=== PATIENT | female | born 1935 | race Caucasian/White ===

== ENCOUNTER 2023-11-25 05:52 | Day surgery (SDC) | payer MEDICARE ==
[2023-11-21 13:27] LABS: ALANINE AMINOTRANSFERASE 15 U/L (12-78); ALBUMIN 3.3 G/DL (3.4-5.0); ALBUMIN/GLOBULIN RATIO 0.9 (1.1-1.5); ALKALINE PHOSPHATASE 100 IU/L (46-116); ANION GAP 12 (8-16); ASPARTATE AMINO TRANSFERASE 13 U/L (10-37); BILIRUBIN,TOTAL 0.4 MG/DL (0.1-1.0); BLOOD UREA NITROGEN 26 MG/DL (7-18); BUN/CREATININE RATIO 29.5 (10.0-20.0); CALCIUM 9.1 MG/DL (8.5-10.1); CHLORIDE 107 MMOL/L (99-107); CREATININE 0.88 MG/DL (0.40-0.90); GLUCOSE 114 MG/DL (70-104); SODIUM 142 MMOL/L (135-145); TOTAL CARBON DIOXIDE 23.2 MMOL/L (24-32); TOTAL PROTEIN 6.9 G/DL (6.4-8.2); eGFR 61 ML/MIN
[2023-11-21 13:50] LABS: BASOPHILS % (AUTO) 0.8 % (0-1); EOSINOPHILS # (AUTO) 0.1 X10'3 (0-0.9); EOSINOPHILS % (AUTO) 2.4 % (0-6); HEMATOCRIT 40.9 % (35.0-45.0); HEMOGLOBIN 13.9 g/dl (12.0-16.0); LYMPHOCYTES # (AUTO) 1.8 X10'3 (1.1-4.8); LYMPHOCYTES % (AUTO) 33.2 % (21-51); MEAN CORPUSCULAR HEMOGLOBIN 31.3 PG (27.0-31.0); MEAN CORPUSCULAR HGB CONC 33.9 g/dL (33.0-36.5); MEAN CORPUSCULAR VOLUME 92.3 FL (78-98); MEAN PLATELET VOLUME 7.8 FL (7.4-10.4); MONOCYTES # (AUTO) 0.5 X10'3 (0-0.9); MONOCYTES % (AUTO) 9.3 % (2-12); NEUTROPHILS # (AUTO) 2.9 X10'3 (1.8-7.7); NEUTROPHILS % (AUTO) 54.3 % (42-75); PLATELET COUNT 257 X10'3 (140-440); RED BLOOD COUNT 4.43 X10'6 (4.20-5.60); RED CELL DISTRIBUTION WIDTH 13.8 % (11.5-14.5); WHITE BLOOD COUNT 5.4 X10'3 (4.5-11.0)
[~2023-11-25] VITALS: Ht 157.5 cm; Wt 70.6 kg
[~2023-11-25 05:52] MED LIST: BRIM5DRO6 EACHEYE; DORZ10DR26 EACHEYE; LATA2.5D14 EACHEYE; NAPR-56 PO
[2023-11-25 06:00] VITALS: BP 147/92; PULSE 52; RESP 15; RESP 16; TEMP 98.7; O2SAT 97
[2023-11-25] MEDS: famotidine 20mg tablet PO ONE (06:27)
[2023-11-25] MEDS: ringers solution, lacted 1,000 ML IV SCH (06:28)
[2023-11-25] MEDS: cefazolin 2gm/D5W 100mL 100 ML IV ONE (06:28)
[2023-11-25] MEDS ORDERED: morphine 2 MG/ML inj. syringe IV PRN (07:25)
[2023-11-25] MEDS ORDERED: ringers solution, lacted 1,000 ML IV SCH (07:25)
[2023-11-25] MEDS ORDERED: labetalol 20mg/4ml (5mg/ml) syringe IV PRN (07:25)
[2023-11-25] MEDS ORDERED: morphine 4 MG/ML inj SYRINge IV PRN (07:25)
[2023-11-25] MEDS ORDERED: ondansetron/PF 4mg/2ml inj IV PRN (07:25)
[2023-11-25] MEDS ORDERED: midazolam 1 mg/ML 2ml injection ONE (07:34)
[2023-11-25] MEDS ORDERED: fentaNYL/PF 50MCG/1 ML 2ML syringe ONE (07:34)
[2023-11-25] MEDS ORDERED: propofol inj 20 ML IV ONE (07:35)
[2023-11-25] MEDS ORDERED: LIDOcaine 2% (20mg/ml) 5ml vial ONE (07:35)
[2023-11-25 08:19] VITALS: BP 118/65; PULSE 47; RESP 16; O2SAT 97
[2023-11-25 08:30] VITALS: BP 131/68; PULSE 46; RESP 13; O2SAT 92
[2023-11-25 08:40] VITALS: BP 117/73; PULSE 42; RESP 12; O2SAT 94
[2023-11-25 08:50] VITALS: BP 122/75; PULSE 44; RESP 18; O2SAT 94
[2023-11-25 09:00] VITALS: BP 131/65; PULSE 43; RESP 18; O2SAT 93
[2023-11-25] MEDS: BUPIVAcaine/PF 2.5mg/ml (0.25%) 10ml vial ONE (09:38)
[2023-11-25] MEDS: LIDOcaine 2% (20mg/ml) 5ml vial ONE (09:38)
== END 2023-11-25 09:19 | disposition home or self-care (01) ==
LOC: PAS 05:52
PROVIDERS: ATTEND Orthopaedic Surgery Hand Surgery
DX: G56.01 Carpal tunnel syndrome, right upper limb (principal); R00.1 Bradycardia, unspecified; H40.9 Unspecified glaucoma; M19.90 Unspecified osteoarthritis, unspecified site; Z79.899 Other long term (current) drug therapy; Z96.653 Presence of artificial knee joint, bilateral; Z96.649 Presence of unspecified artificial hip joint; Z79.890 Hormone replacement therapy; Z88.5 Allergy status to narcotic agent
CPT/HCPCS: 36415; 64721; 80053; 82948; 85025; 93005; J0690; J2250; J2704; J3010; J3490; J7030; J7120; Z7506; Z7512; A4215; A6449